=== PATIENT | female | born 1990 | race Asian ===

== ENCOUNTER 2016-12-15 09:58 | Emergency (ER) | payer MEDICAID, OTHER ==
[2016-12-15 10:13] LABS: BILIRUBIN,URINE NEGATIVE (NEGATIVE)
[2016-12-15 10:16] LABS: UA w/ MICROSCOPIC CHARGE YES
[2016-12-15 10:17] LABS: HCG UR QUAL NEGATIVE
[2016-12-15 10:23] LABS: UR CULTURE IF IND INDICATED
[2016-12-15] MEDS ORDERED: KETOROLAC 60 MG/2 ML VIAL IVP STA (10:40)
[2016-12-15] MEDS ORDERED: SODIUM CHLORIDE 0.9% 1,000 ML IV ONE (10:40)
--- NOTE | 2016-12-15 10:42 | ED Physician Documentation ---
History of Present Illness - Stated complaint Stated Complaint: FEMALE - Chief complaint Chief Complaint: UTI - Additonal information Additional information: hx from pt 26 f to ER with CC several days severe lower back abd pain and dysuria, also hematuria or vag bleed no vag dc LMP 1 wk ago no fever no NVD Review of Systems Constitutional: denies: Fever, Chills Cardiac: denies: Chest pain / pressure Respiratory: denies: Dyspnea GI: reports: Abdominal Pain. denies: Nausea, Vomiting, Diarrhea : reports: Dysuria, LMP (1 wk ago), Vaginal bleeding. denies: Discharge Musculoskeletal: reports: Back pain Endocrine: denies: Easy bruising / bleeding Immunocompromised: denies: Immunocompromised PD PAST MEDICAL HISTORY - Past Medical History Past Medical History: No - Past Surgical History Past Surgical History: No - Present Medications Home Medications: Ambulatory Orders Medication Instructions Recorded Confirmed Cephalexin [Keflex] 500 mg PO Q6H #40 capsule 12/15/16 Indomethacin [Indocin] 25 mg PO BIDWM #14 capsule 12/15/16 Phenazopyridine [Pyridium] 100 mg PO Q8H PRN #9 tablet 12/15/16 - Allergies Allergies/Adverse Reactions: Allergies Allergy/AdvReac Type Severity Reaction Status Date / Time No Known Drug Allergies Allergy Verified 12/15/16 10:06 - Social History Does the pt smoke?: Yes Smoking Status: Current every day smoker Does the pt drink ETOH?: Yes Does the pt have substance abuse?: No PD ED PE NORMAL - Vitals Vital signs reviewed: Yes - General General: Alert and oriented X 3, Other (curled up uncomfortable) - Cardiac Cardiac: RRR - Respiratory Respiratory: No respiratory distress, Clear bilaterally - Abdomen Abdomen: Other (marked TTP with vol guarding throughout lower abd) - Female Female : Pt declined - Back Back: No: No CVA TTP (mickey CVA TTP) - Neuro Neuro: Alert and oriented X 3 Results - Vitals Vitals: Vital Signs - 24 hr 12/15/16 12/15/16 10:01 12:31 Temperature 36.6 C Heart Rate 94 72 Respiratory 20 16 Rate Blood Pressure 107/72 109/60 O2 Saturation 98 97 Oxygen O2 Source Room air - Labs Labs: Laboratory Tests 12/15/16 12/15/16 12/15/16 09:55 10:50 10:50 WBC 7.7 RBC 4.15 L Hgb 13.2 Hct 38.5 MCV 92.7 MCH 31.8 H MCHC 34.3 RDW 12.6 Plt Count 303 MPV 7.4 L Neut # 5.0 Lymph # 1.7 [place] # 0.8 Eos # 0.2 Baso # 0.0 Absolute Nucleated RBC 0.00 Nucleated RBCs 0.0 Sodium 136 Potassium 3.7 Chloride 105 Carbon Dioxide 23 Anion Gap 8.0 BUN 13 Creatinine 0.7 Estimated GFR (MDRD) 102 Glucose 83 Calcium 9.0 Total Bilirubin 0.5 AST 25 ALT 18 Alkaline Phosphatase 56 Total Protein 7.4 Albumin 4.1 Globulin 3.3 Albumin/Globulin Ratio 1.2 Lipase 36 Urine Color ORANGE Urine Clarity CLEAR Urine pH 6.0 Ur Specific [place] <=1.005 Urine Protein Urine Glucose (UA) NEGATIVE Urine Ketones NEGATIVE Urine Occult Blood Urine Nitrite Urine Bilirubin NEGATIVE Urine Urobilinogen 1 (NORMAL) Ur Leukocyte Esterase Urine RBC 6-10 H Urine WBC 11-25 H Ur Squamous Epith Cells RARE Squamous Urine Bacteria Rare Ur Microscopic Review INDICATED Urine Culture Comments INDICATED Urine HCG, Qual NEGATIVE PD MEDICAL DECISION MAKING - ED course ED course: pt declines pelvic exam - states no vag dc pain seemed excessive for UTI/pyelo so got CT CT abd pelvis neg for renal stones appy ovarian issues etc will tx for pyelo and refer to [facility] for fup this week Departure - Departure Disposition: 01 Home, Self Care Clinical Impression: Pyelonephritis Condition: Good Instructions: ED Kidney Infec Female Follow-Up: [facility] [Provider Group] (for an ER follow up this week - you need to call to schedule) Prescriptions: Indomethacin [Indocin] 25 mg PO BIDWM #14 capsule Cephalexin [Keflex] 500 mg PO Q6H #40 capsule Phenazopyridine [Pyridium] 100 mg PO Q8H PRN #9 tablet PRN Reason: painful urination Forms: Activity restrictions
[2016-12-15] MEDS ORDERED: KETOROLAC 30 MG/ML VIAL ONE (10:46)
[2016-12-15 10:58] LABS: BASOPHILS % (AUTO) 0.5 %; EOSINOPHILS # (AUTO) 0.2 10^3/uL (0.0-0.7); EOSINOPHILS % (AUTO) 2.1 %; HCT - HEMATOCRIT 38.5 % (37.0-47.0); HGB - HEMOGLOBIN 13.2 g/dL (12.0-16.0); LYMPHOCYTES # (AUTO) 1.7 10^3/uL (1.5-3.5); LYMPHOCYTES % (AUTO) 22.5 %; MEAN CORPUSCULAR HEMOGLOBIN 31.8 pg (27.0-31.0); MEAN CORPUSCULAR HGB CONC 34.3 g/dL (32.0-36.0); MEAN CORPUSCULAR VOLUME 92.7 fL (81.0-99.0); MEAN PLATELET VOLUME 7.4 fL (7.9-10.8); MONOCYTES # (AUTO) 0.8 10^3/uL (0.0-1.0); MONOCYTES % (AUTO) 10.1 %; NEUTROPHILS % (AUTO) 64.8 %; RED BLOOD COUNT 4.15 10^6/uL (4.20-5.40); RED CELL DISTRIBUTION WIDTH 12.6 % (12.0-15.0); UNCORRECTED WHITE BLOOD COUNT 7.7 x10^3/uL; WHITE BLOOD COUNT 7.7 x10^3/uL (4.8-10.8)
[2016-12-15 11:10] LABS: ALBUMIN/GLOBULIN RATIO 1.2 (1.0-2.2); BILIRUBIN,TOTAL 0.5 mg/dL (0.2-1.0); CREATININE 0.7 mg/dL (0.4-1.0); POTASSIUM 3.7 mmol/L (3.5-5.0); TOTAL PROTEIN 7.4 g/dL (6.7-8.2)
--- NOTE | 2016-12-15 12:02 | CT Preliminary Report ---
Exam: CT Abdomen/Pelvis W/O IMPRESSION: No urinary tract stones or obstruction. [facility] SITE ID: [id number]
--- NOTE | 2016-12-15 12:05 | CT Report ---
EXAM: CT ABDOMEN AND PELVIS (CT KUB) EXAM DATE: 12/15/2016 11:28 AM. CLINICAL HISTORY: Flank and abd pain hematuria. COMPARISONS: None. TECHNIQUE: Routine axial helical CT imaging was performed through the abdomen and pelvis without IV c ontrast. Reconstructions: Coronal and sagittal. In accordance with CT protocol optimization, one or more of the following dose reduction techniques w ere utilized for this exam: automated exposure control, adjustment of mA and/or KV based on patient s ize, or use of iterative reconstructive technique. FINDINGS: Lung Bases: Unremarkable. Right Kidney/Ureter: No stones, hydronephrosis, or hydroureter. No perinephric fat stranding. Left Kidney/Ureter: No stones, hydronephrosis, or hydroureter. No perinephric fat stranding. Other Solid Organs: Noncontrast images of the solid organs are grossly unremarkable. Gallbladder/Bile Ducts: Unremarkable. Peritoneal Cavity: No free fluid, free air or jenny adenopathy. Bowel is grossly unremarkable. Pelvic Organs: No bladder stones or wall thickening. Noncontrast images of the visualized pelvic orga ns are unremarkable. Vasculature: Unremarkable. Other: None. IMPRESSION: No urinary tract stones or obstruction. [facility] Referring Provider Line: [phone] SITE ID: [id number]
[2016-12-15 13:26] VITALS: BP 95/52
== END 2016-12-15 13:42 | disposition home or self-care (01) ==
LOC: ED 09:58
DX: N12 Tubulo-interstitial nephritis, not specified as acute or chronic (principal)
CPT/HCPCS: 36415; 74176; 80053; 81001; 81003; 81025; 83690; 85025; 87086; 96361; 96374; 99283; 99284

== ENCOUNTER 2019-02-14 18:03 | Emergency (ER) | payer MEDICAID, OTHER ==
--- NOTE | 2019-02-14 18:49 | ED Physician Documentation ---
PD HPI ABD PAIN - Stated complaint Stated Complaint: FEMALE - Chief complaint Chief Complaint: Abd Pain - History obtained from History obtained from: Patient - History of Present Illness Timing - onset: Other (4-5 days diffuse abd pain. Has been constipated. Tried stool softeners without relief. Worse with movement and sitting, better with laying. Last nl BM 3 days ago. No N/V. No dysuria/frequency. No H/O abd surgeries. No relief with ibuprofen. No chance of per pt. Uses MJ daily.) Review of Systems Ten Systems: 10 systems reviewed and negative Constitutional: denies: Fever, Chills, Myalgias Respiratory: denies: Dyspnea, Cough GI: reports: Abdominal Pain, Constipation. 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 : None HEENT: None Psych: None Musculoskeletal: None Derm: None - Past Surgical History Past Surgical History: No - Present Medications Home Medications: Ambulatory Orders Medication Instructions Recorded Confirmed Cephalexin [Keflex] 500 mg PO Q6H #40 capsule 12/15/16 Indomethacin [Indocin] 25 mg PO BIDWM #14 capsule 12/15/16 Phenazopyridine [Pyridium] 100 mg PO Q8H PRN #9 tablet 12/15/16 - Allergies Allergies/Adverse Reactions: Allergies Allergy/AdvReac Type Severity Reaction Status Date / Time No Known Drug Allergies Allergy Verified 02/14/19 18:13 - Social History Does the pt smoke?: Yes Smoking Status: Current every day smoker Does the pt drink ETOH?: Yes Does the pt have substance abuse?: No - Family History Family history: reports: Non contributory PD ED PE NORMAL - Vitals Vital signs reviewed: Yes - General General: Alert and oriented X 3, No acute distress - HEENT HEENT: PERRL, EOMI - Neck Neck: Supple, no meningeal sign, No bony TTP - Cardiac Cardiac: RRR, No murmur - Respiratory Respiratory: No respiratory distress, Clear bilaterally - Abdomen Abdomen: Normal bowel sounds, Soft, Other (TTP LLQ without surgical signs.) - Back Back: No CVA TTP, No spinal TTP - Derm Derm: Normal color, Warm and dry - Extremities Extremities: No edema, No calf tenderness / cord - Neuro Neuro: Alert and oriented X 3, Normal speech Results - Vitals Vitals: Vital Signs - 24 hr 02/14/19 18:11 Temperature 36.5 C Heart Rate 97 Respiratory 15 Rate Blood Pressure 110/73 O2 Saturation 98 Oxygen O2 Source Room air - Labs Labs: Laboratory Tests 02/14/19 02/14/19 02/14/19 19:10 19:25 19:25 WBC 8.9 RBC 4.35 Hgb 13.7 Hct 41.9 MCV 96.3 MCH 31.5 H MCHC 32.7 RDW 12.3 Plt Count 304 MPV 9.4 Neut # (Auto) 6.3 Lymph # (Auto) 1.7 [place] # (Auto) 0.6 Eos # (Auto) 0.2 Baso # (Auto) 0.0 Absolute Nucleated RBC 0.00 Nucleated RBC % 0.0 Sodium 141 Potassium 4.1 Chloride 101 Carbon Dioxide 27 Anion Gap 13.0 BUN 13 Creatinine 1.0 Estimated GFR (MDRD) 67 L Glucose 87 Calcium 9.1 Total Bilirubin 1.0 AST 29 ALT 16 Alkaline Phosphatase 49 Total Protein 7.9 Albumin 4.2 Globulin 3.7 Albumin/Globulin Ratio 1.1 Lipase 38 Urine Color YELLOW Urine Clarity HAZY Urine pH 6.5 Ur Specific [place] 1.020 Urine Protein TRACE Urine Glucose (UA) NEGATIVE Urine Ketones NEGATIVE Urine Occult Blood LARGE H Urine Nitrite NEGATIVE Urine Bilirubin NEGATIVE Urine Urobilinogen 1 (NORMAL) Ur Leukocyte Esterase NEGATIVE Urine RBC 6-10 H Urine WBC 0-3 Ur Squamous Epith Cells MOD Squamous H Urine Bacteria Few Ur Microscopic Review INDICATED Urine Culture Comments NOT INDICATED Urine HCG, Qual NEGATIVE - Rads (name of study) ABD / Pelvic CT Radiology: EMP read contemporaneously (normal) PD MEDICAL DECISION MAKING - ED course ED course: 28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 Some tenderness so appendicitis was a concern but negative on CT. She is only sexually active with the same sex and is not concerned about STDs. No abnormal discharge. No white count. CT read as negative, on my review she does appear to have a fecal impaction and she was advised to take an enema at home and return if symptoms did not alexandra after that. Departure - Departure Disposition: 01 Home, Self Care Clinical Impression: Fecal impaction Abdominal pain Qualifiers: Abdominal location: lower abdomen, unspecified Qualified Code(s): R10.30 - Lower abdominal pain, unspecified Condition: Good Record reviewed to determine appropriate education?: Yes Instructions: ED Abdominal Pain Appendx Poss Comments: As discussed, take an enema when you get home. I suspect she will have a large bowel movement and feel much better. If you do not please return for reevaluation.
[2019-02-14] MEDS ORDERED: MORPHINE 2 MG/ML CARPUJECT IVP STA ×3 (18:50→20:37)
[2019-02-14 19:28] LABS: BILIRUBIN,URINE NEGATIVE (NEGATIVE); GLUCOSE, URINE (UA) NEGATIVE (NEGATIVE); KETONES,URINE (UA) NEGATIVE (NEGATIVE); LEUKOCYTE ESTERASE, URINE NEGATIVE (NEGATIVE); NITRITE,URINE NEGATIVE (NEGATIVE); OCCULT BLOOD,URINE LARGE (NEGATIVE); PH,URINE 6.5 PH (5.0-7.5); PROTEIN,URINE TRACE mg/dL (NEGATIVE); UROBILINOGEN,URINE 1 (NORMAL) E.U./dL (NORMAL)
[2019-02-14 19:29] LABS: CLARITY,URINE HAZY (CLEAR); HCG UR QUAL NEGATIVE
[2019-02-14 19:35] LABS: BACTERIA,URINE Few /HPF (None Seen); SQUAMOUS EPITHELIAL CELL,UR MOD Squamous (<= Few)
[2019-02-14 19:36] LABS: BASOPHILS % (AUTO) 0.3 %; EOSINOPHILS # (AUTO) 0.2 10^3/uL (0.0-0.7); EOSINOPHILS % (AUTO) 2.7 %; HGB - HEMOGLOBIN 13.7 g/dL (12.0-16.0); LYMPHOCYTES # (AUTO) 1.7 10^3/uL (1.5-3.5); LYMPHOCYTES % (AUTO) 18.8 %; MEAN CORPUSCULAR HEMOGLOBIN 31.5 pg (27.0-31.0); MEAN CORPUSCULAR HGB CONC 32.7 g/dL (32.0-36.0); MEAN CORPUSCULAR VOLUME 96.3 fL (81.0-99.0); MEAN PLATELET VOLUME 9.4 fL (7.9-10.8); MONOCYTES # (AUTO) 0.6 10^3/uL (0.0-1.0); MONOCYTES % (AUTO) 7.2 %; NEUTROPHILS # (AUTO) 6.3 10^3/uL (1.5-6.6); NEUTROPHILS % (AUTO) 70.8 %; PLT - PLATELET COUNT 304 10^3/uL (130-450); RED BLOOD COUNT 4.35 10^6/uL (4.20-5.40); RED CELL DISTRIBUTION WIDTH 12.3 % (12.0-15.0); WHITE BLOOD COUNT 8.9 x10^3/uL (4.8-10.8)
[2019-02-14] MEDS ORDERED: IOVERSOL 320 100 ML VIAL IVP ONE ×2 (19:49→20:12)
[2019-02-14 20:53] LABS: ALBUMIN 4.2 g/dL (3.2-5.5); ALBUMIN/GLOBULIN RATIO 1.1 (1.0-2.2); CALCIUM 9.1 mg/dL (8.5-10.3); TOTAL PROTEIN 7.9 g/dL (6.7-8.2)
--- NOTE | 2019-02-14 20:53 | CT Report ---
Reason: IV only, low abd pain Procedure Date: 02/14/2019 Accession Number: [id number] / [id number] Procedure: CT - Abdomen/Pelvis W CPT Code: FULL RESULT: EXAM: CT ABDOMEN AND PELVIS EXAM DATE: 02/14/2019 08:09 PM. CLINICAL HISTORY: IV only, low abd pain. COMPARISONS: ABDOMEN/PELVIS W/O 12/15/2016 11:25 AM. TECHNIQUE: Routine helical CT imaging was performed through the abdomen and pelvis. IV contrast: OPTI 320 100ML. Enteric contrast: No. Reconstructions: Coronal and sagittal. In accordance with CT protocol optimization, one or more of the following dose reduction techniques were utilized for this exam: automated exposure control, adjustment of mA and/or KV based on patient size, or use of iterative reconstructive technique. FINDINGS: ABDOMEN: Lung Bases: Incompletely included lower lungs are grossly clear. Heart size is within normal limits. No basilar effusions. Liver: Unremarkable. Spleen: Unremarkable. Pancreas: Unremarkable. Gallbladder/Bile Ducts: Gallbladder is unremarkable. Biliary tree is normal caliber. Adrenal Glands: Unremarkable. Kidneys: No mass, calculi, or hydronephrosis. Peritoneum/Mesentery/Bowel: No free fluid, free air, or collection. No intestinal obstruction or inflammation. The appendix is within normal limits. Lymph nodes: No mesenteric, periportal, or retroperitoneal lymphadenopathy. Vasculature: Abdominal aorta is nonaneurysmal. Portal vein is patent. Hepatic veins are patent. PELVIS: The bladder is unremarkable for the degree of distention. Uterus is present. No obvious abnormally enlarged adnexal abnormalities. No pelvic lymphadenopathy. Bones: No suspicious osseous lesions. IMPRESSION: No acute abnormalities. [facility]
[2019-02-14 21:18] VITALS: BP 105/60
== END 2019-02-14 21:16 | disposition home or self-care (01) ==
LOC: ED 18:03
DX: K56.41 Fecal impaction (principal); F17.200 Nicotine dependence, unspecified, uncomplicated
CPT/HCPCS: 36415; 74177; 80053; 81001; 81025; 83690; 85025; 96374; 96376; 99284; Q9967; 81003; 87086

== ENCOUNTER 2019-07-11 13:24 | Emergency (ER) | payer SELFPAY ==
[2019-07-11] MEDS ORDERED: ONDANSETRON ODT 4 MG TABLET TL STA (13:43)
[2019-07-11 13:58] LABS: BILIRUBIN,URINE NEGATIVE (NEGATIVE); GLUCOSE, URINE (UA) NEGATIVE (NEGATIVE); KETONES,URINE (UA) NEGATIVE (NEGATIVE); LEUKOCYTE ESTERASE, URINE TRACE (NEGATIVE); NITRITE,URINE NEGATIVE (NEGATIVE); OCCULT BLOOD,URINE NEGATIVE (NEGATIVE); PROTEIN,URINE NEGATIVE (NEGATIVE); UROBILINOGEN,URINE 0.2 (NORMAL) E.U./dL (NORMAL)
[2019-07-11] MEDS ORDERED: MAG HYDROX/AL HYDROX/SIMETH 30 ML UDC PO STA (13:58)
--- NOTE | 2019-07-11 13:59 | ED Physician Documentation ---
History of Present Illness - Stated complaint Stated Complaint: STOMACH PX - Chief complaint Chief Complaint: Abd Pain - Additonal information Additional information: This is a 28-year-old female presents with epigastric abdominal pain that is generalized throughout her abdomen. Patient states she had similar pain to this a few months ago [facility] she was actually hospitalized for several days there and was told she had a stomach infection and was given antibiotics. This seemed to help, however since Wednesday she has had abdominal pain worse in the midepigastrium but it is present somewhat diffusely throughout the abdomen. She denies any history of abdominal surgeries. She states she has had nausea as well with vomiting for several days and has had reduced appetite. She does not think she is ever had a CT scan, ultrasound, or endoscopy done. She has tried Tylenol without much relief. Or abnormal vaginal discharge. Patient is sexually active with a female partner only. No fever. 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 : None HEENT: None Psych: None Musculoskeletal: None Derm: None - Past Surgical History Past Surgical History: No - Present Medications Home Medications: Ambulatory Orders Medication Instructions Recorded Confirmed Cephalexin [Keflex] 500 mg PO Q6H #40 capsule 12/15/16 Indomethacin [Indocin] 25 mg PO BIDWM #14 capsule 12/15/16 Phenazopyridine [Pyridium] 100 mg PO Q8H PRN #9 tablet 12/15/16 Dicyclomine [Bentyl] 10 mg PO TID PRN #21 capsule 07/11/19 Famotidine [Acid Controller] 20 mg PO DAILY #14 tablet 07/11/19 Ondansetron Odt [Zofran] 4 mg TL Q6H PRN #10 tablet 07/11/19 - Allergies Allergies/Adverse Reactions: Allergies Allergy/AdvReac Type Severity Reaction Status Date / Time No Known Drug Allergies Allergy Verified 07/11/19 13:29 - Social History Does the pt smoke?: Yes Smoking Status: Current every day smoker Does the pt drink ETOH?: Yes Does the pt have substance abuse?: No PD ED PE NORMAL - Vitals Vital signs reviewed: Yes - General General: Alert and oriented X 3 - HEENT HEENT: Atraumatic - Neck Neck: Supple, no meningeal sign - Cardiac Cardiac: RRR - Respiratory Respiratory: No respiratory distress, Clear bilaterally - Abdomen Abdomen: Soft, Non distended, Other (There is mild tenderness in the epigastrium, To a lesser extent there is some very mild tenderness in the left upper quadrant and right upper quadrant.No Garcia sign. No lower abdominal discomfort.) - Back Back: No CVA TTP - Neuro Neuro: Other (Alert oriented, no focal deficit) - Psych Psych: Normal mood, Normal affect Results - Vitals Vitals: Vital Signs - 24 hr 07/11/19 07/11/19 07/11/19 13:29 14:54 16:04 Temperature 36.5 C 36.9 C 37 C Heart Rate 89 61 61 Respiratory 16 16 16 Rate Blood Pressure 131/67 H 114/74 114/73 O2 Saturation 100 100 100 Oxygen O2 Source Room air - Labs Labs: Laboratory Tests 07/11/19 07/11/19 07/11/19 13:45 13:56 13:56 WBC 6.0 RBC 4.13 L Hgb 13.1 Hct 38.7 MCV 93.7 MCH 31.7 H MCHC 33.9 RDW 11.9 L Plt Count 329 MPV 8.7 Neut # (Auto) 3.9 Lymph # (Auto) 1.3 L [place] # (Auto) 0.6 Eos # (Auto) 0.2 Baso # (Auto) 0.0 Absolute Nucleated RBC 0.00 Nucleated RBC % 0.0 Sodium 135 Potassium 3.4 L Chloride 104 Carbon Dioxide 24 Anion Gap 7.0 BUN 10 Creatinine 0.8 Estimated GFR (MDRD) 86 L Glucose 87 Calcium 8.5 Total Bilirubin 0.5 AST 21 ALT 19 Alkaline Phosphatase 41 L Total Protein 7.2 Albumin 3.9 Globulin 3.3 Albumin/Globulin Ratio 1.2 Lipase 43 Urine Color YELLOW Urine Clarity HAZY Urine pH 6.0 Ur Specific [place] >=1.030 H Urine Protein NEGATIVE Urine Glucose (UA) NEGATIVE Urine Ketones NEGATIVE Urine Occult Blood NEGATIVE Urine Nitrite NEGATIVE Urine Bilirubin NEGATIVE Urine Urobilinogen 0.2 (NORMAL) Ur Leukocyte Esterase TRACE H Urine RBC 0-5 Urine WBC 6-10 H Ur Squamous Epith Cells MOD Squamous H Urine Bacteria Moderate H Ur Microscopic Review INDICATED Urine Culture Comments NOT INDICATED Urine HCG, Qual NEGATIVE PD MEDICAL DECISION MAKING - ED course Complexity details: considered differential (Gastritis, Gastroenteritis,cholecystitis, biliary colic, pancreatitis, UTI) ED course: On examination patient is well-appearing, vital signs are well. She has a overall benign abdominal exam, she has some midepigastric tenderness but no focal right upper quadrant or right lower quadrant tenderness. Labs were drawn and patient was given a GI cocktail as well as Zofran. She did have improvement in her symptoms with these interventions. Labs show no leukocytosis, abdominal panel is unremarkable, lipase is normal, hCG is negative. She does have 6-10 white blood cells in her urine but there are also many squamous epithelium and patient has no dysuria, no suprapubic discomfort, her discomfort is truly located in the upper abdomen. I do not clinically think that she has a urinary tract infection at this time and patient does not feel like it is a urinary tract infection. I did request records from [facility] and reviewed them, it appears that she had was diagnosed as PID, presumably from a non-sexually transmitted infection, as her GC chlamydia trichomonas swabs were negative. She is sexually active with a female partner only and is very low risk for sexual transmitted infections. Additionally today she has no pelvic or vaginal symptoms whatsoever. On repeat examination patient is feeling better and has benign abdominal exam. The fact that she has vomiting and diarrhea and somewhat migratory abdominal discomfort makes gastroenteritis likely. She is appearing, and has unremarkable vitals and labs. No RUQ tenderness, negative garcia sign, and no LFT changes to suggest biliary pathology at this time. She was prescribed Zofran, famotidine, and Bentyl abdominal cramping. I discussed return precautions, especially fever, pelvic symptoms, pain that localizes or any other concerning symptoms. I also discussed PCP follow-up and patient was discharged home. Departure - Departure Disposition: 01 Home, Self Care Clinical Impression: Abdominal pain Qualifiers: Abdominal location: generalized Qualified Code(s): R10.84 - Generalized abdominal pain Condition: Good Prescriptions: Dicyclomine [Bentyl] 10 mg PO TID PRN #21 capsule PRN Reason: Abdominal Pain Famotidine [Acid Controller] 20 mg PO DAILY #14 tablet Ondansetron Odt [Zofran] 4 mg TL Q6H PRN #10 tablet PRN Reason: Nausea / Vomiting Comments: You were seen today for abdominal discomfort, vomiting, and diarrhea. Your labs are reassuring today. This may be a gastroenteritis or "stomach flu." You may take the Zofran for nausea, and you may try the Bentyl which might help with abdominal cramping. You may also try the famotidine which is an acid blocking medication. If you develop worsening pain or pain that settles to one area of the abdomen, particularly the right upper or the right lower abdomen, please return to the emergency department for recheck. Also return if you have vomiting that is not improving with the Zofran, fever, or other concerning symptoms. I think is a good idea to continue taking a probiotic or yogurt, given that you have recently been on antibiotics which may have disrupted the normal bacteria of your intestines. Forms: Activity restrictions Discharge Date/Time: 07/11/19 16:04
[2019-07-11 14:01] LABS: CLARITY,URINE HAZY (CLEAR); HCG UR QUAL NEGATIVE
[2019-07-11 14:11] LABS: BASOPHILS % (AUTO) 0.3 %; EOSINOPHILS # (AUTO) 0.2 10^3/uL (0.0-0.7); EOSINOPHILS % (AUTO) 3.3 %; HGB - HEMOGLOBIN 13.1 g/dL (12.0-16.0); LYMPHOCYTES # (AUTO) 1.3 10^3/uL (1.5-3.5); LYMPHOCYTES % (AUTO) 20.9 %; MEAN CORPUSCULAR HEMOGLOBIN 31.7 pg (27.0-31.0); MEAN CORPUSCULAR HGB CONC 33.9 g/dL (32.0-36.0); MEAN CORPUSCULAR VOLUME 93.7 fL (81.0-99.0); MEAN PLATELET VOLUME 8.7 fL (7.9-10.8); MONOCYTES # (AUTO) 0.6 10^3/uL (0.0-1.0); MONOCYTES % (AUTO) 9.9 %; NEUTROPHILS # (AUTO) 3.9 10^3/uL (1.5-6.6); NEUTROPHILS % (AUTO) 65.3 %; PLT - PLATELET COUNT 329 10^3/uL (130-450); RED BLOOD COUNT 4.13 10^6/uL (4.20-5.40); RED CELL DISTRIBUTION WIDTH 11.9 % (12.0-15.0)
[2019-07-11 14:14] LABS: BACTERIA,URINE Moderate /HPF (None Seen); RBC,URINE 0-5 /HPF (0-5); SQUAMOUS EPITHELIAL CELL,UR MOD Squamous (<= Few)
[2019-07-11 14:24] LABS: ALBUMIN 3.9 g/dL (3.2-5.5); ALBUMIN/GLOBULIN RATIO 1.2 (1.0-2.2); BILIRUBIN,TOTAL 0.5 mg/dL (0.2-1.0); CALCIUM 8.5 mg/dL (8.5-10.3); CREATININE 0.8 mg/dL (0.4-1.0); TOTAL PROTEIN 7.2 g/dL (6.7-8.2)
[2019-07-11 16:05] VITALS: BP 114/73
== END 2019-07-11 16:04 | disposition home or self-care (01) ==
LOC: ED 13:24
DX: R10.84 Generalized abdominal pain (principal); R11.2 Nausea with vomiting, unspecified; R19.7 Diarrhea, unspecified; F17.200 Nicotine dependence, unspecified, uncomplicated
CPT/HCPCS: 36415; 80053; 81001; 81025; 83690; 85025; 99283; 99284; A9270; Q0162; 81003; 87086

== ENCOUNTER 2021-12-24 16:27 | Emergency (ER) | payer SELFPAY ==
--- NOTE | 2021-12-26 14:40 | XRAY Report ---
PROCEDURE: Left knee x-ray INDICATIONS: Pain TECHNIQUE: 4 views of the left knee were obtained COMPARISON: None. FINDINGS: Normal bone mineralization. There is moderate degenerative joint space narrowing and small joint effu aster present. No fracture or lytic lesion. Overlying soft tissues unremarkable. IMPRESSION: Mild/moderate osteoarthritis and small joint effusion Reviewed by: Cuong Watkins MD on 12/24/2021 5:56 PM LESLIE Approved by: Cuong Watkins MD on 12/24/2021 5:56 PM AKSHARI Station ID: [id number]
== END 2021-12-24 18:58 | disposition home or self-care (01) ==
LOC: ED 16:27
DX: S83.412A Sprain of medial collateral ligament of left knee, initial encounter (principal); X50.1XXA Overexertion from prolonged static or awkward postures, initial encounter; Y93.51 Activity, roller skating (inline) and skateboarding
CPT/HCPCS: 99282; 99283

== ENCOUNTER 2022-01-27 08:00 | Outpatient (CLI) | payer MEDICAID ==
--- NOTE | 2022-01-28 16:24 | XRAY Report ---
PROCEDURE: Knee 3 View LT INDICATIONS: KNEE PAIN TECHNIQUE: 3 views of the left knee(s) were acquired. COMPARISON: None. FINDINGS: Bones: No fractures or dislocations. No suspicious bony lesions. There is trace bilateral medial c ompartment narrowing. No erosions or particular osteophytes. Soft tissues: No joint effusion. No suspicious soft tissue calcifications. IMPRESSION: Trace bilateral medial compartment narrowing suggestive of very early degenerative ann e. Reviewed by: Briana Yap MD on 01/28/2022 4:22 PM PDT Approved by: Briana Yap MD on 01/28/2022 4:22 PM PDT Station ID: [id number]
== END 2022-01-27 23:59 | disposition home or self-care (01) ==
LOC: DI.WOS 08:00
PROVIDERS: ATTEND Physician Assistant
DX: M25.562 Pain in left knee (principal)

== ENCOUNTER 2022-05-20 17:12 | Outpatient (CLI) | payer MEDICAID | END 2022-05-20 17:13 | disposition critical access hospital (66) | LOC: EMS 17:12 | DX: S01.111A Laceration without foreign body of right eyelid and periocular area, initial encounter (principal); V49.40XA Driver injured in collision with unspecified motor vehicles in traffic accident, initial encounter; Y92.413 State road as the place of occurrence of the external cause | CPT/HCPCS: A0425; A0429; A0999 ==

== ENCOUNTER 2022-05-20 17:47 | Emergency (ER) | payer MEDICAID ==
[2022-05-20 18:09] VITALS: BP 130/80
[2022-05-20] MEDS ORDERED: HYDROmorphone 1 MG/ML CARPUJECT IVP STA ×2 (18:14→19:15)
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
[2022-05-20 19:12] LABS: BASOPHILS % (AUTO) 0.6 %; EOSINOPHILS # (AUTO) 0.2 10^3/uL (0.0-0.7); EOSINOPHILS % (AUTO) 2.1 %; HCT - HEMATOCRIT 37.1 % (37.0-47.0); HGB - HEMOGLOBIN 12.6 g/dL (12.0-16.0); LYMPHOCYTES # (AUTO) 1.9 10^3/uL (1.5-3.5); LYMPHOCYTES % (AUTO) 26.1 %; MEAN CORPUSCULAR HEMOGLOBIN 31.3 pg (27.0-31.0); MEAN CORPUSCULAR VOLUME 92.3 fL (81.0-99.0); MEAN PLATELET VOLUME 8.8 fL (7.9-10.8); MONOCYTES # (AUTO) 0.7 10^3/uL (0.0-1.0); MONOCYTES % (AUTO) 9.1 %; NEUTROPHILS # (AUTO) 4.4 10^3/uL (1.5-6.6); PLT - PLATELET COUNT 320 10^3/uL (130-450); RED BLOOD COUNT 4.02 10^6/uL (4.20-5.40); RED CELL DISTRIBUTION WIDTH 11.9 % (12.0-15.0); WHITE BLOOD COUNT 7.1 x10^3/uL (4.8-10.8)
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
[2022-05-20] MEDS ORDERED: KETOROLAC 30 MG/ML VIAL IVP STA (19:18)
[2022-05-20 19:19] LABS: PT - PROTHROMBIN TIME 11.6 secs (9.9-12.6)
[2022-05-20] MEDS ORDERED: TETANUS/DIPHTHERIA/PERTUSSIS 0.5 ML SYRINGE IM ONE (19:22)
[2022-05-20 19:26] LABS: ALBUMIN 4.3 g/dL (3.2-5.5); ALBUMIN/GLOBULIN RATIO 1.3 (1.0-2.2); BILIRUBIN,TOTAL 0.7 mg/dL (0.2-1.0); CALCIUM 9.1 mg/dL (8.5-10.3); CREATININE 0.9 mg/dL (0.4-1.0); POTASSIUM 3.2 mmol/L (3.5-5.0); TOTAL PROTEIN 7.5 g/dL (6.7-8.2)
[2022-05-20] MEDS ORDERED: oxyCODONE/ACET 5/325 Prepack 4 PO STA (19:55)
[2022-05-20] MEDS ORDERED: CYCLOBENZAPRINE 10 MG Prepack 2 PO PRN (19:55)
[2022-05-20 20:08] LABS: HCG,QUALITATIVE BLOOD NEGATIVE
== END 2022-05-20 20:45 | disposition home or self-care (01) ==
LOC: EDUNIT# → ED 17:47
DX: S01.111A Laceration without foreign body of right eyelid and periocular area, initial encounter (principal); S13.4XXA Sprain of ligaments of cervical spine, initial encounter; V49.49XA Driver injured in collision with other motor vehicles in traffic accident, initial encounter; F17.200 Nicotine dependence, unspecified, uncomplicated; Z23 Encounter for immunization; Z71.85 Encounter for immunization safety counseling
CPT/HCPCS: 12011; 36415; 70450; 70480; 71250; 72125; 74176; 80053; 83690; 84703; 85025; 85610; 90471; 90715; 96374; 96375; 96376; 99284; J1170

== ENCOUNTER 2022-06-20 13:19 | Emergency (ER) | payer MEDICAID ==
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
[2022-06-20] MEDS ORDERED: KETOROLAC 15 MG/ML VIAL IVP STA (18:18)
[2022-06-20] MEDS ORDERED: DEXAMETHASONE 10 MG/ML VIAL IVP STA (18:18)
[2022-06-20] MEDS ORDERED: iohexoL-300 100 ML VIAL ONE (18:42)
[2022-06-20 18:58] LABS: CORONAVIRUS 229E-RESP PCR NOT DETECTED; CORONAVIRUS HKU1-RESP PCR NOT DETECTED; CORONAVIRUS NL63-RESP PCR NOT DETECTED; CORONAVIRUS OC43-RESP PCR NOT DETECTED; HUMAN METAPNEUMOVIRUS NOT DETECTED; INFLUENZA A- RESP PCR PANEL NOT DETECTED; RHINOVIRUS/ENTEROVIRUS NOT DETECTED; SARS-CoV-2 -RESP PCR PANEL NOT DETECTED
[2022-06-20 18:59] LABS: B. PARAPERTUSSIS- RESP PCR PAN NOT DETECTED; B. PERTUSSIS- RESP PCR PANEL NOT DETECTED; C. PNEUMONIAE- RESP PCR PANEL NOT DETECTED; INFLUENZA B - RESP PCR PANEL NOT DETECTED; M. PNEUMONIAE- RESP PCR PANEL NOT DETECTED; PARAINFLUENZA VIRUS 1 NOT DETECTED; PARAINFLUENZA VIRUS 2 NOT DETECTED; PARAINFLUENZA VIRUS 3 NOT DETECTED; PARAINFLUENZA VIRUS 4 NOT DETECTED; RSV- RESP PCR PANEL NOT DETECTED
[2022-06-20 19:07] LABS: CALCIUM 9.3 mg/dL (8.5-10.3); CREATININE 0.7 mg/dL (0.4-1.0); POTASSIUM 3.3 mmol/L (3.5-5.0)
[2022-06-20 19:37] LABS: HCG,QUALITATIVE BLOOD NEGATIVE
[2022-06-20] MEDS ORDERED: iohexoL-300 100 ML VIAL IVP ONE (19:47)
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
[2022-06-20 21:19] VITALS: BP 111/92
== END 2022-06-20 21:29 | disposition home or self-care (01) ==
LOC: ED 13:19
DX: R51.9 Headache, unspecified (principal); F07.81 Postconcussional syndrome; F17.200 Nicotine dependence, unspecified, uncomplicated; Z20.822 Contact with and (suspected) exposure to COVID-19
CPT/HCPCS: 36415; 70496; 70498; 80048; 84703; 87633; 96374; 96375; 99284; Q9967

== ENCOUNTER 2022-07-26 21:56 | Outpatient (CLI) | payer MEDICAID | END 2022-07-26 21:57 | disposition left against medical advice (07) | LOC: EMS 21:56 | DX: M25.471 Effusion, right ankle (principal); M25.551 Pain in right hip; W01.0XXA Fall on same level from slipping, tripping and stumbling without subsequent striking against object, initial encounter; Y92.009 Unspecified place in unspecified non-institutional (private) residence as the place of occurrence of the external cause ==

== ENCOUNTER 2023-03-08 08:00 | Outpatient (CLI) | payer MEDICAID ==
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
== END 2023-03-08 23:59 | disposition home or self-care (01) ==
LOC: DI.WOS 08:00
PROVIDERS: ATTEND Physician Assistant Surgical
DX: M25.562 Pain in left knee (principal)

== ENCOUNTER 2023-03-26 08:00 | Outpatient (CLI) | payer MEDICAID ==
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
== END 2023-03-26 08:01 | disposition home or self-care (01) ==
LOC: DI 08:00
PROVIDERS: ATTEND Physician Assistant Surgical
DX: S83.282A Other tear of lateral meniscus, current injury, left knee, initial encounter (principal)